=== PATIENT | female | born 1945 | race African-American/Black ===

== ENCOUNTER 2023-12-04 20:53 | Emergency (ER) | payer OTHER ==
[2023-12-04 21:08] VITALS: BMI 24.0
[2023-12-05] MEDS ORDERED: ASPIRIN 81 MG CHEWABLE TABLETS ONE (00:43)
[2023-12-05 00:45] LABS: BASO % 0.9 % (0-2.0); EOS % 1.4 % (0-4.5); HEMATOCRIT 36.4 % (32.4-45.2); HEMOGLOBIN 12.3 GM/dL (10.7-15.3); LYMPH % 17.3 % (8-40); MCH 32.2 pg (25.7-33.7); MCHC 33.9 g/dl (32.0-36.0); MEAN CELL VOLUME 94.9 fl (80-96); MEAN PLT VOLUME 8.1 fl (7.5-11.1); MONO % 5.8 % (3.8-10.2); NEUT % 74.6 % (42.8-82.8); PLATELET COUNT 349 10^3/uL (134-434); RBC 3.83 M/mm3 (3.60-5.2); WHITE BLOOD COUNT 14.9 K/mm3 (4.0-10.0)
[2023-12-05 01:08] LABS: CHLORIDE 98 mmol/L (98-107); SODIUM 136 mmol/L (136-145)
[2023-12-05 01:09] LABS: CALCIUM 9.4 mg/dL (8.5-10.1)
[2023-12-05 01:11] LABS: ALBUMIN 4.3 g/dl (3.4-5.0); BLOOD UREA NITROGEN 19.2 mg/dL (7-18); CO2 29 mmol/L (21-32); GLUCOSE,RANDOM 91 mg/dL (74-106); MAGNESIUM 1.6 mg/dL (1.8-2.4)
[2023-12-05 01:13] LABS: CREATININE 0.6 mg/dL (0.55-1.3); SGOT/AST 9 U/L (15-37)
[2023-12-05 01:15] LABS: BILIRUBIN,TOTAL 0.4 mg/dL (0.2-1); TOT PROT 8.1 g/dl (6.4-8.2)
[2023-12-05 01:16] LABS: ALK PHOS 58 U/L (45-117)
[2023-12-05 01:19] LABS: SGPT/ALT 16 U/L (13-61)
[2023-12-05] MEDS: ASPIRIN 81 MG CHEWABLE TABLETS PO ONE (01:22)
[2023-12-05 01:42] LABS: ANION GAP 9 mmol/L (4-13); POTASSIUM 2.8 mmol/L (3.5-5.1)
[2023-12-05 01:55] VITALS: RESP 19; TEMP 97.9
[2023-12-05] MEDS ORDERED: MAGNESIUM SULFATE IN WATER 2 GM/50 ML IVPB IVPB ONE (02:35)
[2023-12-05] MEDS ORDERED: POTASSIUM CHLORIDE ORAL LIQUID 20 MEQ/15 ML ONE ×2 (02:35→07:12)
[2023-12-05] MEDS: POTASSIUM CHLORIDE ORAL LIQUID 20 MEQ/15 ML PO STA (02:42)
[2023-12-05] MEDS ORDERED: MAGNESIUM SULF 50% (8.12 MEQ/2 ML-1 GM VIAL) ONE (02:43)
[2023-12-05] MEDS: MAGNESIUM SULF 50% (8.12 MEQ/2 ML-1 GM VIAL) IVPB ONE (02:56)
[2023-12-05 05:49] LABS: EPI CELLS 6 /uL (0-25.1); HYALINE CASTS 0 /uL (0-3.1); PH,URINE 6.5 (5.0-8.0); URINE APPEARANCE CLEAR; URINE BACTERIA >9,000 /uL (0-1359); URINE BILIRUBIN NEGATIVE (NEGATIVE); URINE COLOR YELLOW; URINE GLUCOSE (UA) NEGATIVE (NEGATIVE); URINE KETONE NEGATIVE (NEGATIVE); URINE LEUK ESTERASE 2+ (NEGATIVE); URINE NITRITE NEGATIVE (NEGATIVE); URINE PROTEIN NEGATIVE (NEGATIVE); URINE RBC 12 /uL (0-23.9); URINE WBC 239 /uL (0-25.8)
[2023-12-05] MEDS ORDERED: CEFTRIAXONE 1 GM/50 ML BAG ONE (06:17)
[2023-12-05] MEDS: CEFTRIAXONE 1,000 MG in DEXTROSE 5%-WATER - 50 ML IVPB ONE (06:24)
[2023-12-05 06:36] LABS: POTASSIUM 3.2 mmol/L (3.5-5.1)
[2023-12-05 06:37] LABS: CALCIUM 9.3 mg/dL (8.5-10.1)
[2023-12-05 06:38] LABS: BLOOD UREA NITROGEN 14.6 mg/dL (7-18)
[2023-12-05 06:41] LABS: CREATININE 0.5 mg/dL (0.55-1.3)
[2023-12-05] MEDS ORDERED: POTASSIUM CHLORIDE ORAL LIQUID 20 MEQ/15 ML PO ONE (07:01)
[2023-12-05 07:56] VITALS: BP 125/78; PULSE 63
== END 2023-12-05 07:55 | disposition home or self-care (01) ==
LOC: JER 20:53
PROC: 3E03329 Introduction of Other Anti-infective into Peripheral Vein, Percutaneous Approach (ICD-10-PCS; principal; 2023-12-05)
PROC: 3E033GC Introduction of Other Therapeutic Substance into Peripheral Vein, Percutaneous Approach (ICD-10-PCS; 2023-12-05)
DX: R42 Dizziness and giddiness (principal); R07.9 Chest pain, unspecified; R11.0 Nausea; N39.0 Urinary tract infection, site not specified; E87.6 Hypokalemia; Z20.822 Contact with and (suspected) exposure to COVID-19
CPT/HCPCS: 0241U-QW; 36415; 71046-TC-FY; 80048; 80053; 81003; 82550; 83735; 84484; 85025; 87086; 87186; 93005; 93010; 96365; 96375; 99284-25